=== PATIENT | male | born 1950 | race Caucasian/White ===

== ENCOUNTER → 2021-05-18 | Day surgery (SDC) | payer MEDICARE ==
[~2021-05-18] MED LIST: ALLO300T PO; INSU100I13 SQ; IPRATRPIUM/ALBUTEROL 0.5/2.5MG 3 ML NEBU. NEB PRN; IV RINGERS SOLUTION,LACTATED 1,000 ML IV SCH; LIDOCAINE 2% PF 5 ML VIAL. ONE; LISI40TA6 PO; METF10007 PO; MIDAZOLAM HCL PF 2 MG/2 ML VIAL. IV ONE; MULT-496 PO; MULT-697 PO; OMEP20CA16 PO; OMEP20TA8 PO; ONDANSETRON PF 4 MG/2 ML VIAL. IV PRN; PROPOFOL 10,000 MCG/ML (20ML) VIAL IV ONE; SIMV20TA18 PO; TADA5TAB PO
[2021-05-18 13:45] VITALS: BP 151/92
== END | disposition home or self-care (01) ==
LOC: SURG 11:54
PROVIDERS: ATTEND Internal Medicine Gastroenterology
DX: Z12.11 Encounter for screening for malignant neoplasm of colon (principal); K57.30 Diverticulosis of large intestine without perforation or abscess without bleeding; E11.9 Type 2 diabetes mellitus without complications; I10 Essential (primary) hypertension; G47.33 Obstructive sleep apnea (adult) (pediatric); E78.5 Hyperlipidemia, unspecified; Z85.46 Personal history of malignant neoplasm of prostate; Z98.890 Other specified postprocedural states; Z72.89 Other problems related to lifestyle; Z79.899 Other long term (current) drug therapy; Z79.84 Long term (current) use of oral hypoglycemic drugs
CPT/HCPCS: 82947; G0121; J2001; J2704; J7120; G0105